=== PATIENT | male | born 1955 | race Caucasian/White ===

== ENCOUNTER 2017-08-10 18:04 | Emergency (ER) | payer BC ==
[~2017-08-10] VITALS: Ht 180.3 cm; Wt 108.9 kg
[2017-08-10] MEDS ORDERED: ONDANSETRON HCL INJ 2 MG/ML VIAL IV STA (18:29)
[2017-08-10] MEDS: SODIUM CHLORIDE 0.9% 1000ML 1,000 ML IV SCH ×2 (18:36→19:00)
[2017-08-10] MEDS ORDERED: SODIUM CHLORIDE 0.9% 1000ML 1,000 ML IV SCH ×2 (19:00→19:45)
[2017-08-10 21:36] VITALS: BP 131/69
== END 2017-08-10 21:30 | disposition home or self-care (01) ==
LOC: FSED 18:04
DX: R11.2 Nausea with vomiting, unspecified (principal); E11.9 Type 2 diabetes mellitus without complications; I10 Essential (primary) hypertension; E78.5 Hyperlipidemia, unspecified
CPT/HCPCS: 80053; 81003; 82553; 84484; 85025; 93005; 99283; J2405